=== PATIENT | male | born 1955 | race Two or more races ===

== ENCOUNTER 2017-12-07 06:13 | Day surgery (SDC) | payer OTHER | END 2017-12-07 11:05 | disposition home or self-care (01) | LOC: AMB-ENDOS 06:13 | DX: K57.30 Diverticulosis of large intestine without perforation or abscess without bleeding (principal); D12.2 Benign neoplasm of ascending colon; D12.4 Benign neoplasm of descending colon; K63.5 Polyp of colon ==

== ENCOUNTER 2025-01-20 08:00 | Day surgery (SDC) | payer OTHER ==
[2025-01-20] MEDS ORDERED: fentaNYL CITRATE 50 MCG/ML AMPUL IV PUSH ONE (10:45)
[2025-01-20] MEDS ORDERED: MIDAZOLAM HCL 2 MG/2 ML VIAL IV ONE (10:45)
[2025-01-20] MEDS ORDERED: DIPHENHYDRAMINE HCL 50 MG/ML VIAL 1ML IV ONE (10:45)
== END 2025-01-20 12:15 | disposition home or self-care (01) ==
LOC: AMB-ENDOS 08:00
PROVIDERS: ATTEND Surgery
DX: K63.5 Polyp of colon (principal); K57.30 Diverticulosis of large intestine without perforation or abscess without bleeding